=== PATIENT | male | born 1980 ===

== ENCOUNTER 2016-07-28 19:27 | Emergency (ER) | payer SELFPAY ==
[2016-07-28 20:16] VITALS: BP 129/95; PULSE 106; RESP 16; TEMP 98; O2SAT 100
[2016-07-28] MEDS ORDERED: Sodium Chloride 0.9% 1,000 ML IV STA (20:28)
--- NOTE | 2016-07-28 20:32 | ED PDOC ---
HPI: Abdomen Time Seen by Provider: 07/28/16 20:24 Chief Complaint (Nursing): Abdominal Pain Chief Complaint (Provider): Abdominal Pain History Per: Patient History/Exam Limitations: no limitations Onset/Duration Of Symptoms: Hrs (started this morning, approximately 10x hours) Current Symptoms Are (Timing): Still Present Severity: Moderate Location Of Pain/Discomfort: Other (upper abdominal pain) Quality Of Discomfort: Sharp Associated Symptoms: Chills, Nausea, Vomiting. denies: Fever, Diarrhea Additional Complaint(s): 36 year old male with no pertinent medical history presents to the ED with complaints of sharp upper abdominal pain that started this morning approximately 10x hours prior to arrival. He reports having associated symptoms of nausea, vomiting, and chills, but denies having a fever and diarrhea. Past Medical History Reviewed: Historical Data, Nursing Documentation, Vital Signs Vital Signs: Last Vital Signs Temp 98.0 F 07/28/16 20:13 Pulse 106 H 07/28/16 20:13 Resp 16 07/28/16 20:13 BP 129/95 H 07/28/16 20:13 Pulse Ox 100 07/28/16 20:36 - Medical History PMH: Diabetes, HTN - Family History Family History: States: Diabetes - Social History Current smoker - smoking cessation education provided: Yes Alcohol: None - Home Medications Home Medications: Ambulatory Orders Medication Instructions Recorded MetFORMIN [glucOPHAGE] 1,000 mg PO BID 07/12/15 Famotidine [Pepcid] 20 mg PO Q12 #20 tab 07/28/16 Ondansetron [Zofran] 4 mg PO Q8H #10 tab 07/28/16 - Allergies Allergies/Adverse Reactions: Allergies Allergy/AdvReac Type Severity Reaction Status Date / Time No Known Allergies Allergy Verified 07/28/16 20:13 Review of Systems ROS Statement: Except As Marked, All Systems Reviewed And Found Negative Constitutional: Positive for: Chills. Negative for: Fever Gastrointestinal: Positive for: Nausea, Vomiting, Abdominal Pain (sharp upper abdominal pain). Negative for: Diarrhea Physical Exam - Reviewed Nursing Documentation Reviewed: Yes Vital Signs Reviewed: Yes - Physical Exam Appears: Positive for: Well, Non-toxic, No Acute Distress Head Exam: Positive for: ATRAUMATIC, NORMOCEPHALIC Skin: Positive for: Normal Color, Warm, Dry Eye Exam: Positive for: Normal appearance Neck: Positive for: Normal Cardiovascular/Chest: Positive for: Regular Rate, Rhythm Respiratory: Positive for: Normal Breath Sounds. Negative for: Respiratory Distress Gastrointestinal/Abdominal: Positive for: Soft, Tenderness (epigastric and LUQ tenderness. No lower abdominal tenderness.) Extremity: Positive for: Normal ROM Neurologic/Psych: Positive for: Alert, Oriented (3x) - Laboratory Results Result Diagrams: 07/28/16 20:48 07/28/16 20:48 - ECG O2 Sat by Pulse Oximetry: 100 (RA) Pulse Ox Interpretation: Normal - Progress Re-evaluation Time: 22:55 Condition: Improved (Tolerated Po fluid challenge) Medical Decision Making Medical Decision Makin:24 Initial impression: 36 year old male with upper abdominal pain. Initial plan: * CMP * lipase * udip * CBC * bentyl 10mg PO * IV NS 1,000ml IV 100mls/hr * pepcid 20mg IVP * zofran 4mg IVP * reevaluation Scribe Attestation: Documented by Hiwot Mark, acting as a scribe for Zack Diaz MD. Provider Scribe Attestation: All medical record entries made by the Scribe were at my direction and personally dictated by me. I have reviewed the chart and agree that the record accurately reflects my personal performance of the history, physical exam, medical decision making, and the department course for this patient. I have also personally directed, reviewed, and agree with the discharge instructions and disposition. Disposition - Clinical Impression Clinical Impression: Gastritis - Patient ED Disposition Is Patient to be Admitted: No Counseled Patient/Family Regarding: Studies Performed, Diagnosis, Need For Followup, Rx Given - Disposition Referrals: [facility] [Outside] Disposition: Routine/Home Disposition Time: 22:56 Condition: FAIR Prescriptions: Famotidine [Pepcid] 20 mg PO Q12 #20 tab Ondansetron [Zofran] 4 mg PO Q8H #10 tab Instructions: Gastritis (ED)
[2016-07-28 21:06] LABS: BASO % 0.2 % (0.0-2.0); EOS % 0.1 % (0.0-4.0); HEMATOCRIT 39.5 % (35.0-51.0); LYMPH # 1.1 K/uL (1.0-4.3); MEAN CELL VOLUME 84.9 fl (80.0-94.0); MEAN CORPUSCULAR HEMOGLOBIN 28.1 pg (27.0-31.0); MEAN CORPUSCULAR HGB CONC 33.2 g/dL (33.0-37.0); MONO # 0.6 K/uL (0.0-0.8); MONO % 5.1 % (0.0-10.0); NEUT # 10.8 K/uL (1.8-7.0); NEUT % 85.6 % (50.0-75.0); PLATELET COUNT 337 K/uL (130-400); RED CELL DISTRIBUTION WIDTH 13.2 % (11.5-14.5); WHITE BLOOD COUNT 12.6 K/uL (4.8-10.8)
[2016-07-28 21:13] LABS: ALB/GLOB RATIO 1.6 (1.0-2.1); ALKALINE PHOSPHATASE 62 U/L (38-126); ALT/SGPT 20 U/L (21-72); AST/SGOT 34 U/L (17-59); BILIRUBIN,TOTAL 1.6 mg/dl (0.2-1.3); BLOOD UREA NITROGEN 7 mg/dl (9-20); CALCIUM 9.9 mg/dL (8.4-10.2); CARBON DIOXIDE 29 mmol/L (22-30); CHLORIDE 99 mmol/L (98-107); GFR AFRICAN-AMERICAN > 60; GLUCOSE,RANDOM 229 mg/dL (75-110); LIPASE 309 U/L (23-300); SODIUM 140 mmol/l (132-148); TOTAL PROTEIN 7.7 G/DL (6.3-8.2)
[2016-07-28 21:56] LABS: NEUTROPHIL 83 % (42-75); TOTAL CELLS COUNTED 100
== END 2016-07-28 23:08 | disposition home or self-care (01) ==
LOC: H.ER 19:27
DX: K29.70 Gastritis, unspecified, without bleeding (principal); E11.9 Type 2 diabetes mellitus without complications; F17.200 Nicotine dependence, unspecified, uncomplicated; I10 Essential (primary) hypertension; Z79.84 Long term (current) use of oral hypoglycemic drugs
CPT/HCPCS: 80053; 83690; 85025; 96361; 96374; 96375; 99283; J2405; J7040

== ENCOUNTER 2016-07-30 13:03 | Observation (INO) | payer OTHER ==
[2016-07-30] MEDS ORDERED: Iohexol 240 (50 ml) PO ONE (14:02)
[2016-07-30] MEDS ORDERED: Sodium Chloride 0.9% 1,000 ML IV STA (14:02)
--- NOTE | 2016-07-30 14:06 | ED PDOC ---
HPI: Abdomen Time Seen by Provider: 07/30/16 13:55 Chief Complaint (Nursing): Abdominal Pain Chief Complaint (Provider): Epigastric abdominal pain History Per: Patient History/Exam Limitations: no limitations Onset/Duration Of Symptoms: Days (3) Outside of [place] travel?: No Current Symptoms Are (Timing): Still Present Location Of Pain/Discomfort: Epigastric Quality Of Discomfort: "Pain" Associated Symptoms: Nausea, Vomiting. denies: Fever Additional History Per: Patient Additional Complaint(s): The pt is a 36yo male, with PMHx of DM, HTN, presents to the ED for evaluation of epigastric pain with nausea and vomiting for the past three days. Pt was seen in the facility 2 days ago with similar symptoms. Currently denies any fevers or bloody stools and offers no additional medical complaints. Past Medical History Reviewed: Historical Data, Nursing Documentation, Vital Signs Vital Signs: Last Vital Signs Temp 98.7 F 07/30/16 13:32 Pulse 111 H 07/30/16 13:32 Resp 18 07/30/16 13:32 BP 148/96 H 07/30/16 13:32 Pulse Ox 100 07/30/16 14:11 - Medical History PMH: Diabetes, HTN - Family History Family History: States: Diabetes - Home Medications Home Medications: Ambulatory Orders Medication Instructions Recorded MetFORMIN [glucOPHAGE] 1,000 mg PO BID 07/12/15 Famotidine [Pepcid] 20 mg PO Q12 #20 tab 07/28/16 Ondansetron [Zofran] 4 mg PO Q8H #10 tab 07/28/16 - Allergies Allergies/Adverse Reactions: Allergies Allergy/AdvReac Type Severity Reaction Status Date / Time No Known Allergies Allergy Verified 07/28/16 20:13 Review of Systems ROS Statement: Except As Marked, All Systems Reviewed And Found Negative Constitutional: Negative for: Fever Gastrointestinal: Positive for: Nausea, Vomiting, Abdominal Pain (epigastric). Negative for: Hematochezia Physical Exam - Reviewed Nursing Documentation Reviewed: Yes Vital Signs Reviewed: Yes - Physical Exam Appears: Positive for: Well, Non-toxic, No Acute Distress Head Exam: Positive for: ATRAUMATIC, NORMAL INSPECTION, NORMOCEPHALIC Skin: Positive for: Normal Color, Warm, DRY Eye Exam: Positive for: Normal appearance Neck: Positive for: Normal, Supple Cardiovascular/Chest: Positive for: Regular Rate, Rhythm Respiratory: Positive for: Normal Breath Sounds. Negative for: Respiratory Distress Gastrointestinal/Abdominal: Positive for: Normal Exam, Soft, Tenderness ( epigastric tenderness) Back: Positive for: Normal Inspection Extremity: Positive for: Normal ROM. Negative for: Deformity Neurologic/Psych: Positive for: Alert, Oriented. Negative for: Motor/Sensory Deficits - ECG O2 Sat by Pulse Oximetry: 100 (RA) Pulse Ox Interpretation: Normal Medical Decision Making Medical Decision Making: Time: 1402 Impression: Epigastric abdominal pain Plan: * CT AP w/ PO & IV Contrast * CMP * CBC * Lipase * Pepcid 20 mg * Zofran 4 mg * Reglan 10 mg * Reassess Scribe Attestation: Documented by Irma Ward acting as a scribe for Zack Diaz MD. Provider Attestation: All medical record entries made by the Scribe were at my direction and personally dictated by me. I have reviewed the chart and agree that the record accurately reflects my personal performance of the history, physical exam, medical decision making, and the department course for this patient. I have also personally directed, reviewed, and agree with the discharge instructions and disposition. Disposition - Clinical Impression Clinical Impression: Abdominal pain - Patient ED Disposition Is Patient to be Admitted: Transfer of Care - Disposition Disposition: Transfer of Care Disposition Time: 15:20 Condition: FAIR Patient Signed Over To: Tavo Garcia
[2016-07-30] MEDS ORDERED: Iohexol 240 (50 ml) ONE (14:33)
[2016-07-30 15:30] LABS: BASO % 0.3 % (0.0-2.0); HEMATOCRIT 38.8 % (35.0-51.0); LYMPH # 1.3 K/uL (1.0-4.3); LYMPH % 9.7 % (20.0-40.0); MEAN CELL VOLUME 84.3 fl (80.0-94.0); MEAN CORPUSCULAR HEMOGLOBIN 28.3 pg (27.0-31.0); MEAN CORPUSCULAR HGB CONC 33.6 g/dL (33.0-37.0); MEAN PLATELET VOLUME 9.1 fl (7.2-11.7); MONO # 0.8 K/uL (0.0-0.8); MONO % 5.9 % (0.0-10.0); NEUT % 84.1 % (50.0-75.0); RED CELL DISTRIBUTION WIDTH 13.1 % (11.5-14.5); WHITE BLOOD COUNT 13.1 K/uL (4.8-10.8)
[2016-07-30 15:39] LABS: ALB/GLOB RATIO 1.6 (1.0-2.1); ALKALINE PHOSPHATASE 56 U/L (38-126); ALT/SGPT 24 U/L (21-72); AST/SGOT 20 U/L (17-59); BILIRUBIN,TOTAL 2.9 mg/dl (0.2-1.3); BLOOD UREA NITROGEN 9 mg/dl (9-20); CALCIUM 9.3 mg/dL (8.4-10.2); CARBON DIOXIDE 28 mmol/L (22-30); CHLORIDE 96 mmol/L (98-107); GFR AFRICAN-AMERICAN > 60; GLUCOSE,RANDOM 253 mg/dL (75-110); LIPASE 65 U/L (23-300); POTASSIUM 3.5 MMOL/L (3.6-5.0); SODIUM 137 mmol/l (132-148); TOTAL PROTEIN 7.3 G/DL (6.3-8.2)
--- NOTE | 2016-07-30 15:48 | ED PDOC ---
- Laboratory Results Result Diagrams: 07/30/16 15:04 07/30/16 15:04 - ECG O2 Sat by Pulse Oximetry: 100 (RA) Pulse Ox Interpretation: Normal - CT Scan/US ct Other Rad Studies (CT/US): Read By Radiologist Other Rad Interpretation: 4.8mm nodule R - Progress ED Course And Treament: 1931: Pt. with no infectious etiology so not septic. Will admit obs medsurg for futher eval. Stable. Will admit for further evaluation and treatment of gastroparesis. Dr. Sanchez will admit. Medical Decision Making Medical Decision Making: Time: 1500 Pt. signed over to me by Dr. Diaz pending CT AP results and disposition. Scribe Attestation: Documented by Irma Ward acting as a scribe for Tavo Garcia MD. Provider Attestation: All medical record entries made by the Scribe were at my direction and personally dictated by me. I have reviewed the chart and agree that the record accurately reflects my personal performance of the history, physical exam, medical decision making, and the department course for this patient. I have also personally directed, reviewed, and agree with the discharge instructions and disposition. Disposition - Clinical Impression Clinical Impression: Gastroparesis - POA Present On Arrival: Poor Glycemic Control - Disposition Disposition: Hospitalized as Observation Patient Disposition Time: 19:36 Condition: FAIR
[2016-07-30] MEDS ORDERED: Sodium Chloride 0.9% 50 ML IV ONE (17:38)
[2016-07-30] MEDS ORDERED: Iohexol 300 100 ML IJ ONE (17:38)
--- NOTE | 2016-07-30 18:42 | CT ---
EXAM: CT Abdomen and Pelvis With Intravenous Contrast CLINICAL HISTORY: 36 years old, male; Pain; Abdominal pain; Epigastric; Patient HX: C/O abd pain most epigastric n v. Dx dm HTN TECHNIQUE: Axial computed tomography images of the abdomen and pelvis with intravenous contrast. This CT exam was performed using one or more of the following dose reduction techniques: automated exposure control, adjustment of the mA and/or kV according to patient size, and/or use of iterative reconstruction technique. Coronal and sagittal reformatted images were created and reviewed. CONTRAST: 98 mL of OMNIPAQUE administered intravenously. EXAM DATE/TIME: 07/30/2016 2:02 PM COMPARISON: There are no prior studies for comparison. FINDINGS: Lower thorax: The heart size is normal. There is minimal scarring at the lung bases. There is a 4.8 mm nodular opacity in the right costophrenic sulcus. There is a small hiatal hernia ABDOMEN: Liver: There is fatty infiltration of the liver. Gallbladder and bile ducts: unremarkable Pancreas: Pancreas is mildly atrophic. Spleen: unremarkable Adrenals: unremarkable Kidneys and ureters: unremarkable Stomach and bowel: Stomach is partially distended. Rotation is normal. There is no obstruction. Appendix is unremarkable. Terminal ileum is unremarkable.Colon is incompletely distended which limits evaluation. Appendix: See above. PELVIS: Bladder: Bladder is incompletely distended. There is bladder wall thickening. Reproductive: Seminal vesicles and prostate are unremarkable..There are calcifications in the vas deferens. ABDOMEN and PELVIS: Intraperitoneal space: There is no free air or free fluid. Bones/joints: There are no acute osseous abnormalities Soft tissues: unremarkable Vasculature: There are calcified phleboliths. Vascular structures are unremarkable. Lymph nodes: There is no pathologic adenopathy. IMPRESSION: 4.8 mm nodular opacity in the right costophrenic sulcus; fatty liver; bladder wall thickening, underdistention versus inflammation Additional findings as described above. Footer: As per Fleischner Society guidelines for follow-up and management of pulmonary nodules: For patients at low risk (minimal or absent history of smoking and of other known risk factors), recommend follow-up chest CT at 12 months; if unchanged, no further follow-up. For patient at high risk (history of smoking or of other known risk factors), recommend initial follow-up chest CT at 6-12 months, then at 18-24 months if no interval change.
[2016-07-30] MEDS ORDERED: Sodium Chloride 0.9% 1,000 ML IV SCH (19:30)
--- NOTE | 2016-07-30 19:31 | CP.PCM.HP ---
History of Present Illness - History of Present Illness History of Present Illness: Chief Complaint: stomach pain HPI: 36 year old male PMH HTN and DM, poorly controlled returns to the ER for the second time in two days for moderate to severe waxing and waning cramping non radiating generalized abdominal pain associated with nausea and vomiting. Patient has not vomited in the last 5 hours he has been in the emergency room. He received morphine, reglan, fluids. CT abd was negative. Mild WBC, likely gastritis vs. gastroparesis. Will observe overnight for worsening intractable nausea and vomiting. HD stable. No acute distress. ROS: Per HPI, all other systems reviewed negative by me PMH: HTN and DM PSH: denies FH: denies SH: smokes marijuana daily. Denies tobacco, etoh ivdu ALLERGIES: NKDA MEDICATIONS: reviewed and as below Temp Pulse Resp BP Pulse Ox 98.7 F 111 H 18 148/96 H 100 07/30/16 13:32 07/30/16 13:32 07/30/16 13:32 07/30/16 13:32 07/30/16 19:32 GENERAL APPEARANCE: Well developed, well nourished, alert and cooperative, and appears to be in no acute distress. HEENT: normocephalic, atraumatic PERRL, EOMI. Vision is grossly intact. External auditory canals clear, hearing grossly intact. No nasal discharge. Oral cavity and pharynx normal. No inflammation, swelling, exudate, or lesions. NECK: Neck supple, non-tender without lymphadenopathy, masses or thyromegaly. CARDIAC: Normal S1 and S2. No S3, S4 or murmurs. Rhythm is regular. LUNGS: Clear to auscultation and percussion without rales, rhonchi, wheezing or diminished breath sounds. ABDOMEN: Positive bowel sounds. Soft, nondistended,generalized tenderness throughout. No guarding or rebound. No masses. BACK: Examination of the spine reveals no spinal deformity, symmetry of spinal muscles, EXTREMITIES: No significant deformity or joint abnormality. No edema. NEUROLOGICAL: Strength and sensation symmetric and intact throughout. Reflexes 2 + throughout. SKIN: Skin normal color, texture and turgor with no lesions or eruptions. PSYCHIATRIC: The patient was oriented to person, place, and time. Normal affect. LABS: 07/30/16 15:04 05/27/17 15:[address] abd negative for acute pathology ACTIVE MEDICATIONS Allergies No Known Allergies Allergy (Verified 07/28/16 20:13) Height & Weight Height 5 ft 6 in Weight 160 lb Start Date/Time Active Medications 07/30/16 14:02 Sodium Chloride 0.9% 1,000 ml IV 100 mls/hr 07/30/16 19:27 Ketorolac [Toradol] 30 mg IVP Q6 PRN Metoclopramide [Reglan] 10 mg IVP Q6 PRN 07/30/16 19:30 MetFORMIN [glucOPHAGE] 1,000 mg PO BID Sodium Chloride 0.9% 1,000 ml IV 200 mls/hr 07/30/16 20:00 Potassium CL 10mEq/100ml [Potassium Chloride 10 mEq/100 ml] 100 ml IVPB Q1 07/30/16 22:00 Insulin Human Regular [HumuLIN R] See Protocol [facility] 07/31/16 09:00 Famotidine [Pepcid] 20 mg PO BID Lisinopril [Zestril] 10 mg PO DAILY ASSESSMENT AND PLAN 36 year old male PMH HTN and DM, poorly controlled returns to the ER for the second time in two days for moderate to severe waxing and waning cramping non radiating generalized abdominal pain associated with nausea and vomiting. Patient has not vomited in the last 5 hours he has been in the emergency room. He received morphine, reglan, fluids. CT abd was negative. Mild WBC, likely gastritis vs. gastroparesis. Will observe overnight for worsening intractable nausea and vomiting. HD stable. No acute distress. Abdominal Pain with intractable vomiting and nausea, possibly gastroparesis CT abd neg Continue reglan Continue fluids Toradol for pain control Monitor for worsening condition Hypokalemia Replete K Check Mg and BMP in AM HTN Start Lisinopril 10 mg po daily DM Accuchecks Cont Metformin ISS Low dose DVT prophylaxis LOVENOX SC daily. Present on Admission - Present on Admission Any Indicators Present on Admission: No Past Patient History - Past Social History Smoking Status: Light Smoker < 10 Cigarettes Daily - CARDIAC Hx Hypertension: Yes - ENDOCRINE/METABOLIC Hx Diabetes Mellitus Type 2: Yes - PSYCHIATRIC Hx Substance Use: Yes - SURGICAL HISTORY Hx Surgeries: No - ANESTHESIA Hx Anesthesia: No Meds Allergies/Adverse Reactions: Allergies Allergy/AdvReac Type Severity Reaction Status Date / Time No Known Allergies Allergy Verified 07/28/16 20:13 Results - Vital Signs Recent Vital Signs: Last Vital Signs Temp 98.7 F 07/30/16 13:32 Pulse 111 H 07/30/16 13:32 Resp 18 07/30/16 13:32 BP 148/96 H 07/30/16 13:32 Pulse Ox 100 07/30/16 19:27 - Labs Result Diagrams: 07/30/16 15:04 07/30/16 15:04 Labs: Laboratory Results - last 24 hr 07/30/16 07/30/16 15:04 15:04 WBC 13.1 H RBC 4.60 Hgb 13.0 Hct 38.8 MCV 84.3 MCH 28.3 MCHC 33.6 RDW 13.1 Plt Count 318 MPV 9.1 Neut % (Auto) 84.1 H Lymph % (Auto) 9.7 L [place] % (Auto) 5.9 Eos % (Auto) 0.0 Baso % (Auto) 0.3 Neut # 11.0 H Lymph # 1.3 Robertson # 0.8 Eos # 0.0 Baso # 0.0 Sodium 137 Potassium 3.5 L Chloride 96 L Carbon Dioxide 28 Anion Gap 17 BUN 9 Creatinine 0.7 L Est GFR ( Amer) > 60 Est GFR (Non-Af Amer) > 60 Random Glucose 253 H Calcium 9.3 Total Bilirubin 2.9 H AST 20 ALT 24 Alkaline Phosphatase 56 Total Protein 7.3 Albumin 4.5 Globulin 2.9 Albumin/Globulin Ratio 1.6 Lipase 65
[2016-07-30] MEDS: Potassium CL 10mEq/100ml 100 ML IVPB SCH ×2 (20:16→23:27)
[2016-07-30] MEDS: Insulin Regular 100 units/ml SC SCH (22:14)
[2016-07-31] MEDS: Potassium CL 10mEq/100ml 100 ML IVPB SCH ×2 (01:19→02:48)
[2016-07-31] MEDS: Insulin Regular 100 units/ml SC SCH ×3 (08:05→17:42)
[2016-07-31 08:08] LABS: MEAN CORPUSCULAR HEMOGLOBIN 28.8 pg (27.0-31.0); MEAN CORPUSCULAR HGB CONC 34.2 g/dL (33.0-37.0); RED CELL DISTRIBUTION WIDTH 13.2 % (11.5-14.5); WHITE BLOOD COUNT 11.6 K/uL (4.8-10.8)
[2016-07-31 08:21] LABS: BLOOD UREA NITROGEN 6 mg/dl (9-20); CARBON DIOXIDE 28 mmol/L (22-30); CHLORIDE 100 mmol/L (98-107); GFR AFRICAN-AMERICAN > 60; GLUCOSE,RANDOM 143 mg/dL (75-110); MAGNESIUM 2.1 MG/DL (1.6-2.3); POTASSIUM 3.7 MMOL/L (3.6-5.0); SODIUM 138 mmol/l (132-148)
--- NOTE | 2016-07-31 11:00 | CP.PCM.DIS ---
Provider - Provider Date of Admission: 07/30/16 19:23 Attending physician: Wen Sanchez DO Time Spent in preparation of Discharge (in minutes): 30 Diagnosis - Discharge Diagnosis (1) Cannabinoid hyperemesis syndrome Status: Acute Hospital Course - Lab Results Lab Results: Most Recent Lab Values WBC 11.6 K/uL (4.8-10.8) H 07/31/16 05:30 RBC 4.53 Mil/uL (4.40-5.90) 07/31/16 05:30 Hgb 13.0 g/dL (12.0-18.0) 07/31/16 05:30 Hct 38.0 % (35.0-51.0) 07/31/16 05:30 MCV 84.0 fl (80.0-94.0) 07/31/16 05:30 MCH 28.8 pg (27.0-31.0) 07/31/16 05:30 MCHC 34.2 g/dL (33.0-37.0) 07/31/16 05:30 RDW 13.2 % (11.5-14.5) 07/31/16 05:30 Plt Count 320 K/uL (130-400) 07/31/16 05:30 MPV 9.1 fl (7.2-11.7) 07/30/16 15:04 Neut % (Auto) 84.1 % (50.0-75.0) H 07/30/16 15:04 Lymph % (Auto) 9.7 % (20.0-40.0) L 07/30/16 15:04 [place] % (Auto) 5.9 % (0.0-10.0) 07/30/16 15:04 Eos % (Auto) 0.0 % (0.0-4.0) 07/30/16 15:04 Baso % (Auto) 0.3 % (0.0-2.0) 07/30/16 15:04 Neut # 11.0 K/uL (1.8-7.0) H 07/30/16 15:04 Lymph # 1.3 K/uL (1.0-4.3) 07/30/16 15:04 [place] # 0.8 K/uL (0.0-0.8) 07/30/16 15:04 Eos # 0.0 K/uL (0.0-0.7) 07/30/16 15:04 Baso # 0.0 K/uL (0.0-0.2) 07/30/16 15:04 Sodium 138 mmol/l (132-148) 07/31/16 05:30 Potassium 3.7 MMOL/L (3.6-5.0) 07/31/16 05:30 Chloride 100 mmol/L (98-107) 07/31/16 05:30 Carbon Dioxide 28 mmol/L (22-30) 07/31/16 05:30 Anion Gap 14 (10-20) 07/31/16 05:30 BUN 6 mg/dl (9-20) L 07/31/16 05:30 Creatinine 0.7 mg/dL (0.8-1.5) L 07/31/16 05:30 Est GFR ( Amer) > 60 07/31/16 05:30 Est GFR (Non-Af Amer) > 60 07/31/16 05:30 POC Glucose (mg/dL) 172 mg/dL (65-110) H 07/31/16 10:44 Random Glucose 143 mg/dL (75-110) H 07/31/16 05:30 Calcium 9.0 mg/dL (8.4-10.2) 07/31/16 05:30 Magnesium 2.1 MG/DL (1.6-2.3) 07/31/16 05:30 Total Bilirubin 2.9 mg/dl (0.2-1.3) H 07/30/16 15:04 AST 20 U/L (17-59) 07/30/16 15:04 ALT 24 U/L (21-72) 07/30/16 15:04 Alkaline Phosphatase 56 U/L (38-126) 07/30/16 15:04 Total Protein 7.3 G/DL (6.3-8.2) 07/30/16 15:04 Albumin 4.5 g/dL (3.5-5.0) 07/30/16 15:04 Globulin 2.9 gm/dL (2.2-3.9) 07/30/16 15:04 Albumin/Globulin Ratio 1.6 (1.0-2.1) 07/30/16 15:04 Lipase 65 U/L (23-300) 07/30/16 15:04 - Hospital Course Hospital Course: 36 year old male PMH HTN and DM, poorly controlled returns to the ER for the second time in two days for moderate to severe waxing and waning cramping non radiating generalized abdominal pain associated with nausea and vomiting. Patient has not vomited in the last 5 hours he has been in the emergency room. He received morphine, reglan, fluids. CT abd was negative. Mild WBC, likely ANNABINOID HYPEREMESIS SYNDROME. Will observe overnight for worsening intractable nausea and vomiting. Patient improved this morning. Has residual nausea but no longer vomiting. Electrolytes resolved. May be discharged home in stable condition. Instructions to follow up with [facility]. Abdominal Pain with intractable vomiting and nausea, likely CANNABINOID HYPEREMESIS SYNDROME Patient admits to using marijuana daily CT abd neg Continue reglan Continue fluids Toradol for pain control Monitor for worsening condition Hypokalemia Electrolyte abnormalities resolved. HTN Start Lisinopril 10 mg po daily DM Accuchecks Cont Metformin ISS Low dose DVT prophylaxis LOVENOX SC daily. Discharge Exam - Head Exam Head Exam: ATRAUMATIC, NORMAL INSPECTION, NORMOCEPHALIC Discharge Plan - Discharge Medications Prescriptions: Lisinopril [Zestril] 10 mg PO DAILY #30 tab MetFORMIN [glucoPHAGE] 1,000 mg PO BID #60 Metoclopramide [Reglan] 10 mg PO Q6 #120 tab - Follow Up Plan Condition: FAIR Disposition: HOME/ ROUTINE
[2016-07-31 15:46] VITALS: PULSE 93; RESP 19; TEMP 98.6; O2SAT 100
[2016-07-31 17:29] VITALS: BP 144/83
== END 2016-07-31 18:04 | disposition home or self-care (01) ==
LOC: H.ER 13:03 → H.ERHOLD 19:23 → H.MEDSURG1 22:00
PROVIDERS: ADMIT Student in an Organized Health Care Education/Training Program; ATTEND Student in an Organized Health Care Education/Training Program
DX: E11.43 Type 2 diabetes mellitus with diabetic autonomic (poly)neuropathy (principal); K31.84 Gastroparesis; E87.6 Hypokalemia; F12.90 Cannabis use, unspecified, uncomplicated; T40.7X5A Adverse effect of cannabis (derivatives), initial encounter; I10 Essential (primary) hypertension; F17.210 Nicotine dependence, cigarettes, uncomplicated

== ENCOUNTER 2016-11-25 12:29 | Emergency (ER) | payer OTHER ==
[2016-11-25 12:42] VITALS: TEMP 97; O2SAT 98
[2016-11-25] MEDS ORDERED: Sodium Chloride 0.9% 1,000 ML IV STA (12:58)
[2016-11-25 14:03] LABS: BASO # 0.1 K/uL (0.0-0.2); BASO % 0.5 % (0.0-2.0); EOS % 0.2 % (0.0-4.0); HEMATOCRIT 40.1 % (35.0-51.0); LYMPH # 1.3 K/uL (1.0-4.3); LYMPH % 9.5 % (20.0-40.0); MEAN CELL VOLUME 84.9 fl (80.0-94.0); MEAN CORPUSCULAR HEMOGLOBIN 27.6 pg (27.0-31.0); MEAN CORPUSCULAR HGB CONC 32.5 g/dL (33.0-37.0); MEAN PLATELET VOLUME 8.7 fl (7.2-11.7); MONO # 0.8 K/uL (0.0-0.8); MONO % 5.7 % (0.0-10.0); NEUT # 11.4 K/uL (1.8-7.0); NEUT % 84.1 % (50.0-75.0); PLATELET COUNT 330 K/uL (130-400); RED CELL DISTRIBUTION WIDTH 13.1 % (11.5-14.5); WHITE BLOOD COUNT 13.5 K/uL (4.8-10.8)
[2016-11-25] MEDS ORDERED: Iohexol 240 (50 ml) PO ONE (14:09)
[2016-11-25 14:20] LABS: ALB/GLOB RATIO 1.6 (1.0-2.1); ALKALINE PHOSPHATASE 63 U/L (38-126); ALT/SGPT 26 U/L (21-72); AST/SGOT 29 U/L (17-59); BILIRUBIN,TOTAL 2.3 mg/dl (0.2-1.3); BLOOD UREA NITROGEN 7 mg/dl (9-20); CALCIUM 9.7 mg/dL (8.4-10.2); CARBON DIOXIDE 30 mmol/L (22-30); CHLORIDE 96 mmol/L (98-107); GFR AFRICAN-AMERICAN > 60; GLUCOSE,RANDOM 281 mg/dL (75-110); POTASSIUM 3.9 MMOL/L (3.6-5.0); SODIUM 138 mmol/l (132-148); TOTAL PROTEIN 7.4 G/DL (6.3-8.2)
[2016-11-25] MEDS ORDERED: Iohexol 240 (50 ml) ONE (14:39)
[2016-11-25 14:42] LABS: NEUTROPHIL 86 % (42-75); TOTAL CELLS COUNTED 100
[2016-11-25] MEDS ORDERED: Sodium Chloride 0.9% 50 ML IV ONE (14:53)
[2016-11-25] MEDS ORDERED: Iohexol 300 100 ML IJ ONE (14:53)
--- NOTE | 2016-11-25 15:24 | ED PDOC ---
HPI: Abdomen Time Seen by Provider: 11/25/16 12:56 Chief Complaint (Nursing): GI Problem Chief Complaint (Provider): abd pain History Per: Patient History/Exam Limitations: no limitations Onset/Duration Of Symptoms: Days (5), Intermittent Episodes, Persistent Outside of [place] travel?: No Current Symptoms Are (Timing): Still Present Location Of Pain/Discomfort: Diffuse Quality Of Discomfort: Cramping, Pressure Associated Symptoms: Chills, Nausea, Vomiting, Loss Of Appetite. denies: Fever , Diarrhea, Back Pain, Chest Pain, Urinary Symptoms Exacerbating Factors: Food Alleviating Factors: Rest Last Bowel Movement: Today Additional Complaint(s): 36yo M in ED for eval of abdominal pain x 5d with hx of similar in the past and dx with gastritis. states that he had intermittent cramping with associated nausea and vomiting and no diarrhea. hx of DM takes metformin. Pt denies any recent foods, foreign travel as causative factor. admits to chills, night sweats. Past Medical History Reviewed: Historical Data, Nursing Documentation, Vital Signs Vital Signs: Last Vital Signs Temp 97 F L 11/25/16 12:39 Pulse 98 H 11/25/16 15:24 Resp 16 11/25/16 15:24 BP 172/98 H 11/25/16 15:24 Pulse Ox 98 11/25/16 18:35 - Medical History PMH: Diabetes, HTN Denies: Chronic Kidney Disease - Family History Family History: States: Diabetes - Home Medications Home Medications: Ambulatory Orders Medication Instructions Recorded Lisinopril [Zestril] 10 mg PO DAILY #30 tab 07/31/16 MetFORMIN [glucoPHAGE] 1,000 mg PO BID #60 07/31/16 Metoclopramide [Reglan] 10 mg PO Q6 #120 tab 07/31/16 Dicyclomine [Bentyl] 20 mg PO TID #30 tab 11/25/16 - Allergies Allergies/Adverse Reactions: Allergies Allergy/AdvReac Type Severity Reaction Status Date / Time No Known Allergies Allergy Verified 07/30/16 19:37 Review of Systems ROS Statement: Except As Marked, All Systems Reviewed And Found Negative Gastrointestinal: Positive for: Nausea, Vomiting, Abdominal Pain Physical Exam - Reviewed Nursing Documentation Reviewed: Yes Vital Signs Reviewed: Yes - Physical Exam Appears: Positive for: Non-toxic, No Acute Distress, Uncomfortable Head Exam: Positive for: ATRAUMATIC, NORMAL INSPECTION, NORMOCEPHALIC Skin: Positive for: Normal Color, Warm, DRY Eye Exam: Positive for: EOMI, Normal appearance, PERRL ENT: Positive for: Normal ENT Inspection Neck: Positive for: Normal, Painless ROM Cardiovascular/Chest: Positive for: Regular Rate, Rhythm Respiratory: Positive for: CNT, Normal Breath Sounds Gastrointestinal/Abdominal: Positive for: Bowel Sounds, Soft. Negative for: Tenderness (on PE nontender. however pt is c/o of cramping pain diffuse. ), Distended, Guarding Back: Positive for: Normal Inspection. Negative for: L CVA Tenderness, R CVA Tenderness Extremity: Positive for: Normal ROM Neurologic/Psych: Positive for: Alert, Oriented - Laboratory Results Result Diagrams: 11/25/16 13:50 11/25/16 13:50 - ECG O2 Sat by Pulse Oximetry: 98 - Progress ED Course And Treament: pt given Bentyl, zofran and due to persistent pain and nausea given morphine and zofran. PT will get CT scan with PO contrast and IV contrast. Medical Decision Making Medical Decision Making: CT of abd-shows no significant abnormality. PT strongly advised to have GI f.u for endoscopy. Pt will be d.c with Bentyl for cramping. pt d.c with lab results and with CT scan results. elevated WBC and blood sugar could be related to pain level. Pt fs improved Disposition - Clinical Impression Clinical Impression: Gastroparesis - Patient ED Disposition Is Patient to be Admitted: No Counseled Patient/Family Regarding: Studies Performed, Diagnosis, Need For Followup, Rx Given, Smoking Cessation - Disposition Referrals: [facility] [Outside] [facility] [Outside] Ronn Rios MD [Staff Provider] - Disposition: Routine/Home Disposition Time: 19:00 Condition: IMPROVED Prescriptions: Dicyclomine [Bentyl] 20 mg PO TID #30 tab Instructions: Gastritis (ED) Forms: [facility] (Mongolian)
[2016-11-25 15:25] VITALS: BP 172/98; PULSE 98; RESP 16
[2016-11-25 17:35] LABS: RBC URINE 1 /hpf (0-3); URINE BACTERIA RARE (<OCC); URINE BILIRUBIN NEGATIVE (NEGATIVE); URINE BLOOD NEGATIVE (NEGATIVE); URINE COLOR YELLOW (YELLOW); URINE GLUCOSE (UA) >=500 mg/dL (Normal); URINE KETONE 80 mg/dL (NEGATIVE); URINE LEUKOCYTE ESTERASE NEG Leu/uL (Negative); URINE PROTEIN NEGATIVE (NEGATIVE); URINE UROBILINOGEN 0.2-1.0 mg/dL (0.2-1.0); WBC URINE 2 /hpf (0-5)
--- NOTE | 2016-11-25 18:31 | CT ---
PROCEDURE: CT Abdomen and Pelvis with oral and IV contrast. HISTORY: diffuse abd pain with elevated WBC COMPARISON: CT abdomen and pelvis with IV contrast performed 07/30/16 TECHNIQUE: Contiguous axial images of the abdomen and pelvis. Oral and IV contrast was administered. Coronal and Sagittal reformats generated and reviewed. Contrast dose: 95 mL Omnipaque 300 Radiation dose: Total exam DLP = 552.06 mGy-cm. This CT exam was performed using one or more of the following dose reduction techniques: Automated exposure control, adjustment of the mA and/or kV according to patient size, and/or use of iterative reconstruction technique. FINDINGS: LOWER THORAX: No visible consolidation, pleural effusion, or pneumothorax. LIVER: Hypoattenuation of the liver compatible with hepatic steatosis. More focal hypoattenuation near the falciform ligament may reflect more focal fat infiltration. GALLBLADDER AND BILE DUCTS: Unremarkable. PANCREAS: Mild atrophy. SPLEEN: Unremarkable. ADRENALS: Unremarkable. KIDNEYS AND URETERS: The kidneys enhance symmetrically. No hydronephrosis or obstructing renal calculus. BLADDER: The urinary bladder appears unremarkable. REPRODUCTIVE: The prostate gland measures approximately 3.9 x 4.6 cm. APPENDIX: The appendix appears within normal limits of caliber. No secondary signs of acute appendicitis. BOWEL: The stomach is nondistended. The bowel loops appear within normal limits of caliber without evidence of intestinal obstruction. PERITONEUM: No significant free fluid. No definite free air. LYMPH NODES: No bulky lymphadenopathy identified. VASCULATURE: No aortic aneurysm. BONES: No acute osseous abnormality is detected. OTHER FINDINGS: None. IMPRESSION: Hypoattenuation of the liver compatible with hepatic steatosis. More focal hypoattenuation near the falciform ligament may reflect more focal fat infiltration.
== END 2016-11-25 19:25 | disposition home or self-care (01) ==
LOC: H.ER 12:29
DX: K31.84 Gastroparesis (principal); E11.9 Type 2 diabetes mellitus without complications; I10 Essential (primary) hypertension; D72.829 Elevated white blood cell count, unspecified
CPT/HCPCS: 74177; 80053; 81003; 82948; 85025; 96374; 96375; 96376; 99284; J2270; J2405; J7040; Q9966; Q9967

== ENCOUNTER 2016-11-26 18:12 | Emergency (ER) | payer OTHER ==
[2016-11-26] MEDS ORDERED: Sodium Chloride 0.9% 1,000 ML IV STA (18:28)
--- NOTE | 2016-11-26 18:45 | ED PDOC ---
HPI: Abdomen Time Seen by Provider: 11/26/16 18:21 Chief Complaint (Nursing): Abdominal Pain Chief Complaint (Provider): Diffuse abdominal pain, vomiting History Per: Patient History/Exam Limitations: no limitations Onset/Duration Of Symptoms: Days Outside of [place] travel?: No Current Symptoms Are (Timing): Still Present Severity: Severe Pain Scale Rating Of: 10 Location Of Pain/Discomfort: Diffuse Quality Of Discomfort: Sharp Associated Symptoms: Nausea, Vomiting, Loss Of Appetite. denies: Fever, Chills Exacerbating Factors: None Alleviating Factors: None Last Bowel Movement: Today Additional Complaint(s): Pt was in ER for the same yesterday with normal CT scan. Pt has also been admitted in the past for hyperemesis due to cannaboid use. Endorsed pending CMP, urine and drug screen. Past Medical History Reviewed: Historical Data, Nursing Documentation, Vital Signs Vital Signs: Last Vital Signs Temp 99.1 F 11/26/16 18:19 Pulse 94 H 11/26/16 18:19 Resp 16 11/26/16 18:19 BP 170/100 H 11/26/16 18:19 Pulse Ox 100 11/26/16 18:45 - Medical History PMH: Diabetes, HTN Denies: Chronic Kidney Disease - Surgical History Surgical History: No Surg Hx - Family History Family History: States: Diabetes - Living Arrangements Living Arrangements: With Family - Social History Current smoker - smoking cessation education provided: No - Home Medications Home Medications: Ambulatory Orders Medication Instructions Recorded Lisinopril [Zestril] 10 mg PO DAILY #30 tab 07/31/16 MetFORMIN [glucoPHAGE] 1,000 mg PO BID #60 07/31/16 Metoclopramide [Reglan] 10 mg PO Q6 #120 tab 07/31/16 Dicyclomine [Bentyl] 20 mg PO TID #30 tab 11/25/16 - Allergies Allergies/Adverse Reactions: Allergies Allergy/AdvReac Type Severity Reaction Status Date / Time No Known Allergies Allergy Verified 07/30/16 19:37 Review of Systems ROS Statement: Except As Marked, All Systems Reviewed And Found Negative Constitutional: Negative for: Fever, Chills Gastrointestinal: Positive for: Nausea, Vomiting, Abdominal Pain Physical Exam - Reviewed Nursing Documentation Reviewed: Yes Vital Signs Reviewed: Yes - Physical Exam Appears: Positive for: Well, Non-toxic, No Acute Distress Head Exam: Positive for: ATRAUMATIC, NORMAL INSPECTION, NORMOCEPHALIC Skin: Positive for: Normal Color, Warm, DRY Eye Exam: Positive for: Normal appearance ENT: Positive for: Normal ENT Inspection Neck: Positive for: Normal, Painless ROM Cardiovascular/Chest: Positive for: Regular Rate, Rhythm Respiratory: Positive for: Normal Breath Sounds. Negative for: Accessory Muscle Use, Respiratory Distress Gastrointestinal/Abdominal: Positive for: Normal Exam, Bowel Sounds, Soft. Negative for: Tenderness, Guarding, Rebound Back: Positive for: Normal Inspection Extremity: Positive for: Normal ROM Neurologic/Psych: Positive for: Alert, Oriented - Laboratory Results Result Diagrams: 11/26/16 18:59 - ECG O2 Sat by Pulse Oximetry: 100 Disposition - Clinical Impression Clinical Impression: Abdominal pain - Patient ED Disposition Is Patient to be Admitted: Transfer of Care - Disposition Disposition: Transfer of Care Disposition Time: 19:47 Condition: STABLE Forms: [facility] (Chadian)
[2016-11-26 19:05] LABS: BASO # 0.1 K/uL (0.0-0.2); BASO % 0.4 % (0.0-2.0); LYMPH # 1.2 K/uL (1.0-4.3); LYMPH % 8.9 % (20.0-40.0); MEAN CELL VOLUME 84.5 fl (80.0-94.0); MEAN CORPUSCULAR HEMOGLOBIN 28.6 pg (27.0-31.0); MEAN CORPUSCULAR HGB CONC 33.9 g/dL (33.0-37.0); MEAN PLATELET VOLUME 9.2 fl (7.2-11.7); MONO # 0.7 K/uL (0.0-0.8); MONO % 5.6 % (0.0-10.0); NEUT # 11.2 K/uL (1.8-7.0); NEUT % 85.1 % (50.0-75.0); NRBC % 0.1 % (0.0-0.0); RED CELL DISTRIBUTION WIDTH 12.9 % (11.5-14.5); WHITE BLOOD COUNT 13.1 K/uL (4.8-10.8)
[2016-11-26 19:57] LABS: ALB/GLOB RATIO 1.6 (1.0-2.1); ALKALINE PHOSPHATASE 61 U/L (38-126); ALT/SGPT 22 U/L (21-72); AST/SGOT 22 U/L (17-59); BILIRUBIN,TOTAL 2.6 mg/dl (0.2-1.3); BLOOD UREA NITROGEN 6 mg/dl (9-20); CARBON DIOXIDE 28 mmol/L (22-30); CHLORIDE 97 mmol/L (98-107); GFR AFRICAN-AMERICAN > 60; GLUCOSE,RANDOM 230 mg/dL (75-110); POTASSIUM 3.4 MMOL/L (3.6-5.0); SODIUM 139 mmol/l (132-148); TOTAL PROTEIN 7.2 G/DL (6.3-8.2)
[2016-11-26 20:10] VITALS: BP 165/99; PULSE 86; RESP 18; TEMP 98.8; O2SAT 95
[2016-11-26 20:32] LABS: RBC URINE 5 /hpf (0-3); URINE BACTERIA RARE (<OCC); URINE BILIRUBIN NEGATIVE (NEGATIVE); URINE BLOOD NEGATIVE (NEGATIVE); URINE COLOR YELLOW (YELLOW); URINE GLUCOSE (UA) >=500 mg/dL (Normal); URINE KETONE 80 mg/dL (NEGATIVE); URINE LEUKOCYTE ESTERASE NEG Leu/uL (Negative); URINE PROTEIN 30 mg/dL (NEGATIVE); URINE UROBILINOGEN 0.2-1.0 mg/dL (0.2-1.0); WBC URINE < 1 /hpf (0-5)
--- NOTE | 2016-11-26 22:53 | ED PDOC ---
- Laboratory Results Result Diagrams: 11/26/16 18:59 11/26/16 19:35 - ECG O2 Sat by Pulse Oximetry: 95 - Progress ED Course And Treament: Patient improved in ED Bloodwork/drug screen reviewed. Disposition - Clinical Impression Clinical Impression: Abdominal pain - POA Present On Arrival: None - Disposition Referrals: Rian BARRERA,MD Reggie [Medical Doctor] - Disposition: Routine/Home Disposition Time: 22:52 Condition: STABLE Prescriptions: Famotidine [Pepcid] 20 mg PO BID #10 tab Ondansetron ODT [Zofran ODT] 4 mg PO Q8 PRN #6 odt PRN Reason: Nausea/Vomiting Instructions: Diabetic Gastroparesis (GEN) Forms: [facility] (Romansh)
== END 2016-11-26 23:24 | disposition home or self-care (01) ==
LOC: H.ER 18:12
DX: R10.9 Unspecified abdominal pain (principal); I10 Essential (primary) hypertension; E11.9 Type 2 diabetes mellitus without complications; Z87.891 Personal history of nicotine dependence
CPT/HCPCS: 80053; 80324; 80345; 80346; 80349; 80353; 80358; 80361; 81003; 83992; 85025; 87086; 96360; 99283; J2270; J2405; J7040

== ENCOUNTER 2016-11-28 20:20 | Emergency (ER) | payer OTHER ==
[2016-11-28] MEDS ORDERED: Sodium Chloride 0.9% 1,000 ML IV STA (22:54)
--- NOTE | 2016-11-28 22:57 | ED PDOC ---
HPI: Abdomen Time Seen by Provider: 11/28/16 22:19 Chief Complaint (Nursing): Abdominal Pain Chief Complaint (Provider): abdominal pain History Per: Patient History/Exam Limitations: no limitations Onset/Duration Of Symptoms: Days (1 week), Waxing/Waning Current Symptoms Are (Timing): Still Present Additional History Per: Patient Additional Complaint(s): 36 y/o male presents with abdominal pain x 1 week. Patient seen twice last week for same, was given prescriptions to go home with. Patient states pain improved as of yesterday then returned today. Pain worse after eating, with associated vomiting x 1. Denies fever, cough, chest pain, shortness of breath, palpitations, changes in bowel movements, urinary symptoms. Past Medical History Reviewed: Historical Data, Nursing Documentation, Vital Signs Vital Signs: Last Vital Signs Temp 99.4 F 11/29/16 04:08 Pulse 82 11/29/16 04:08 Resp 16 11/29/16 04:08 BP 162/94 H 11/29/16 04:08 Pulse Ox 100 11/29/16 04:25 - Medical History PMH: Diabetes, HTN Denies: Chronic Kidney Disease - Family History Family History: States: Diabetes - Home Medications Home Medications: Ambulatory Orders Medication Instructions Recorded Lisinopril [Zestril] 10 mg PO DAILY #30 tab 07/31/16 MetFORMIN [glucoPHAGE] 1,000 mg PO BID #60 07/31/16 Metoclopramide [Reglan] 10 mg PO Q6 #120 tab 07/31/16 Dicyclomine [Bentyl] 20 mg PO TID #30 tab 11/25/16 Famotidine [Pepcid] 20 mg PO BID #10 tab 11/26/16 Ondansetron ODT [Zofran ODT] 4 mg PO Q8 PRN #6 odt 11/26/16 Famotidine [Pepcid] 20 mg PO BID #20 tab 11/29/16 Ondansetron ODT [Zofran ODT] 4 mg PO Q8 PRN #10 odt 11/29/16 - Allergies Allergies/Adverse Reactions: Allergies Allergy/AdvReac Type Severity Reaction Status Date / Time No Known Allergies Allergy Verified 07/30/16 19:37 Review of Systems ROS Statement: Except As Marked, All Systems Reviewed And Found Negative Gastrointestinal: Positive for: Nausea, Vomiting, Abdominal Pain Physical Exam - Reviewed Nursing Documentation Reviewed: Yes Vital Signs Reviewed: Yes - Physical Exam Appears: Positive for: Well, Non-toxic, No Acute Distress Head Exam: Positive for: ATRAUMATIC, NORMAL INSPECTION, NORMOCEPHALIC Skin: Positive for: Normal Color Eye Exam: Positive for: Normal appearance ENT: Positive for: Normal ENT Inspection Cardiovascular/Chest: Positive for: Regular Rate, Rhythm Respiratory: Positive for: Normal Breath Sounds Gastrointestinal/Abdominal: Positive for: Normal Exam Back: Positive for: Normal Inspection Extremity: Positive for: Normal ROM Neurologic/Psych: Positive for: Alert, Oriented - Laboratory Results Result Diagrams: 11/28/16 23:09 11/28/16 23:20 - ECG O2 Sat by Pulse Oximetry: 100 - Progress ED Course And Treament: labs, IV fluids, IV zofran, IV pepcid EXAM: US Abdomen Limited, Right Upper Quadrant CLINICAL HISTORY: 36 years old, male; Pain; Abdominal pain; Epigastric TECHNIQUE: Real-time ultrasound of the right upper quadrant with image documentation. COMPARISON: No relevant prior studies available. FINDINGS: Liver: Fatty infiltration. No mass. No intrahepatic ductal dilatation. Gallbladder: No gallstones. Sludge. No wall thickening. No pericholecystic fluid. No sonographic Allen's sign. Common bile duct: No dilatation. No stones. Pancreas: Unremarkable as visualized. Right kidney: Normal echogenicity. No hydronephrosis. IMPRESSION: 1. Gallbladder sludge. 2. Incidental/non-acute findings are described above. On re-eval, patient states he is feeling better. Tolerating PO. Case discussed with ED attending Dr. Escobedo; agrees with plan to discharge and follow up outpatient therapy. Rx pepcid, zofran provided. Diet modification. Return to ED for worsening/concerning symptoms. Disposition - Clinical Impression Clinical Impression: Abdominal pain - Patient ED Disposition Is Patient to be Admitted: No Counseled Patient/Family Regarding: Studies Performed, Diagnosis, Need For Followup - Disposition Referrals: Ronn Rios MD [Staff Provider] - Disposition: Routine/Home Disposition Time: 04:19 Condition: IMPROVED Prescriptions: Famotidine [Pepcid] 20 mg PO BID #20 tab Ondansetron ODT [Zofran ODT] 4 mg PO Q8 PRN #10 odt PRN Reason: Nausea/Vomiting Instructions: Abdominal Pain (ED)
[2016-11-28 23:27] LABS: BASO % 0.3 % (0.0-2.0); EOS % 0.2 % (0.0-4.0); HEMATOCRIT 42.9 % (35.0-51.0); LYMPH # 2.2 K/uL (1.0-4.3); MEAN CELL VOLUME 84.5 fl (80.0-94.0); MEAN CORPUSCULAR HEMOGLOBIN 28.8 pg (27.0-31.0); MEAN PLATELET VOLUME 9.1 fl (7.2-11.7); MONO # 1.3 K/uL (0.0-0.8); MONO % 9.9 % (0.0-10.0); NEUT # 9.3 K/uL (1.8-7.0); NEUT % 72.6 % (50.0-75.0); NRBC % 0.2 % (0.0-0.0); RED CELL DISTRIBUTION WIDTH 12.9 % (11.5-14.5); WHITE BLOOD COUNT 12.9 K/uL (4.8-10.8)
[2016-11-28 23:29] LABS: RBC URINE 3 /hpf (0-3); URINE BACTERIA RARE (<OCC); URINE BILIRUBIN NEGATIVE (NEGATIVE); URINE BLOOD NEGATIVE (NEGATIVE); URINE COLOR YELLOW (YELLOW); URINE GLUCOSE (UA) 50 mg/dL (Normal); URINE KETONE 80 mg/dL (NEGATIVE); URINE LEUKOCYTE ESTERASE NEG Leu/uL (Negative); URINE PROTEIN 30 mg/dL (NEGATIVE); WBC URINE 3 /hpf (0-5)
[2016-11-28 23:39] LABS: ALB/GLOB RATIO 1.5 (1.0-2.1); ALKALINE PHOSPHATASE 66 U/L (38-126); ALT/SGPT 22 U/L (21-72); AST/SGOT 23 U/L (17-59); BILIRUBIN,TOTAL 2.9 mg/dl (0.2-1.3); BLOOD UREA NITROGEN 7 mg/dl (9-20); CALCIUM 9.5 mg/dL (8.4-10.2); CARBON DIOXIDE 28 mmol/L (22-30); CHLORIDE 98 mmol/L (98-107); GFR AFRICAN-AMERICAN > 60; GLUCOSE,RANDOM 176 mg/dL (75-110); LIPASE 87 U/L (23-300); POTASSIUM 3.1 MMOL/L (3.6-5.0); SODIUM 142 mmol/l (132-148); TOTAL PROTEIN 7.9 G/DL (6.3-8.2)
[2016-11-29] MEDS ORDERED: Potassium Chloride 20 mEq ER Tab PO ONE ×2 (01:23→01:41)
--- NOTE | 2016-11-29 03:40 | US ---
EXAM: US Abdomen Limited, Right Upper Quadrant CLINICAL HISTORY: 36 years old, male; Pain; Abdominal pain; Epigastric TECHNIQUE: Real-time ultrasound of the right upper quadrant with image documentation. COMPARISON: No relevant prior studies available. FINDINGS: Liver: Fatty infiltration. No mass. No intrahepatic ductal dilatation. Gallbladder: No gallstones. Sludge. No wall thickening. No pericholecystic fluid. No sonographic Allen's sign. Common bile duct: No dilatation. No stones. Pancreas: Unremarkable as visualized. Right kidney: Normal echogenicity. No hydronephrosis. IMPRESSION: 1. Gallbladder sludge. 2. Incidental/non-acute findings are described above.
[2016-11-29 04:09] VITALS: BP 162/94; PULSE 82; RESP 16; TEMP 99.4
[2016-11-29 04:12] VITALS: O2SAT 100
== END 2016-11-29 04:45 | disposition home or self-care (01) ==
LOC: H.ER 20:20
DX: R10.9 Unspecified abdominal pain (principal); E11.9 Type 2 diabetes mellitus without complications; I10 Essential (primary) hypertension; Z79.84 Long term (current) use of oral hypoglycemic drugs
CPT/HCPCS: 76705; 80053; 81003; 82948; 83690; 85025; 96374; 99283; J2405; J7040

== ENCOUNTER 2016-12-20 15:50 | Emergency (ER) | payer OTHER ==
[2016-12-20 16:25] VITALS: TEMP 99.5
[2016-12-20] MEDS ORDERED: Sodium Chloride 0.9% 1,000 ML IV STA ×2 (17:22→18:39)
--- NOTE | 2016-12-20 17:44 | ED PDOC ---
HPI: General Adult Time Seen by Provider: 12/20/16 16:33 Chief Complaint (Nursing): Abdominal Pain History Per: Patient Additional Complaint(s): Pt. states since Monday he's had multiple episodes of non-bloody vomiting associated with 3 episodes of non-bloody watery diarrhea (lasted for only 1 day) . States symptoms improved slightly on Monday but then returned on Monday. Also states that he's had diffused "crampy" abdominal pain greatest in the upper abdominal area. Denies chest pain, sick contacts, recent travel, melena, hematochezia, BRBPR, hematemesis, weakness. Past Medical History Reviewed: Historical Data, Nursing Documentation, Vital Signs Vital Signs: Last Vital Signs Temp 99.5 F 12/20/16 16:22 Pulse 85 12/20/16 19:12 Resp 19 12/20/16 19:12 BP 160/88 H 12/20/16 19:12 Pulse Ox 99 12/21/16 14:58 - Medical History PMH: Diabetes, HTN Denies: Chronic Kidney Disease - Family History Family History: States: No Known Family Hx, Diabetes - Home Medications Home Medications: Ambulatory Orders Medication Instructions Recorded Lisinopril [Zestril] 10 mg PO DAILY #30 tab 07/31/16 MetFORMIN [glucoPHAGE] 1,000 mg PO BID #60 07/31/16 Metoclopramide [Reglan] 10 mg PO Q6 #120 tab 07/31/16 Dicyclomine [Bentyl] 20 mg PO TID #30 tab 11/25/16 Famotidine [Pepcid] 20 mg PO BID #10 tab 11/26/16 Ondansetron ODT [Zofran ODT] 4 mg PO Q8 PRN #6 odt 11/26/16 Famotidine [Pepcid] 20 mg PO BID #20 tab 11/29/16 Ondansetron ODT [Zofran ODT] 4 mg PO Q8 PRN #10 odt 11/29/16 Dicyclomine [Bentyl] 20 mg PO TID PRN #21 tab 12/20/16 Famotidine [Pepcid] 20 mg PO BID #14 tab 12/20/16 Ondansetron ODT [Zofran ODT] 4 mg PO Q8 PRN #10 odt 12/20/16 - Allergies Allergies/Adverse Reactions: Allergies Allergy/AdvReac Type Severity Reaction Status Date / Time No Known Allergies Allergy Verified 07/30/16 19:37 Review of Systems ROS Statement: Except As Marked, All Systems Reviewed And Found Negative Gastrointestinal: Positive for: Nausea, Vomiting, Abdominal Pain, Diarrhea, Constipation Physical Exam - Reviewed Nursing Documentation Reviewed: Yes Vital Signs Reviewed: Yes - Physical Exam Appears: Positive for: Well, Non-toxic, No Acute Distress Head Exam: Positive for: ATRAUMATIC, NORMAL INSPECTION, NORMOCEPHALIC Skin: Positive for: Normal Color, Warm. Negative for: Rash Eye Exam: Positive for: EOMI, Normal appearance, PERRL ENT: Positive for: Normal ENT Inspection Neck: Positive for: Normal, Painless ROM Cardiovascular/Chest: Positive for: Regular Rate, Rhythm Respiratory: Positive for: CNT, Normal Breath Sounds Gastrointestinal/Abdominal: Positive for: Normal Exam, Bowel Sounds, Soft. Negative for: Tenderness, Distended Back: Positive for: Normal Inspection. Negative for: L CVA Tenderness, R CVA Tenderness Extremity: Positive for: Normal ROM Neurologic/Psych: Positive for: Alert, Oriented - Laboratory Results Result Diagrams: 12/20/16 17:51 12/20/16 17:51 - ECG O2 Sat by Pulse Oximetry: 99 - Progress ED Course And Treament: Labs ordered. Pepcid 20mg IV, zofran 4mg IV, bentyl 20mg PO, IV NS bolus ordered. Lab results d/w Dr. Escobedo and states pt. does not require ABG. On re-evaluation, pt. reports improvement of pain but is still present and nausea has resolved. IV NS bolus, donnatol, viscous lidocaine PO, maalox PO, EKG ordered. Disposition - Clinical Impression Clinical Impression: Gastroenteritis - Patient ED Disposition Is Patient to be Admitted: Transfer of Care (Signed out to Bethany CORRALES pending EKG, US results, and disposition) - Disposition Referrals: [facility] [Outside] Ronn Rios MD [Staff Provider] - Disposition: Routine/Home Disposition Time: 19:15 Condition: IMPROVED Prescriptions: Dicyclomine [Bentyl] 20 mg PO TID PRN #21 tab PRN Reason: Pain, Mild (1-3) Famotidine [Pepcid] 20 mg PO BID #14 tab Ondansetron ODT [Zofran ODT] 4 mg PO Q8 PRN #10 odt PRN Reason: Nausea/Vomiting Instructions: Gastroenteritis (ED) Forms: [facility] ED School/Work Excuse
[2016-12-20 18:02] LABS: BASO % 0.4 % (0.0-2.0); EOS % 0.3 % (0.0-4.0); HEMATOCRIT 39.1 % (35.0-51.0); LYMPH # 1.4 K/uL (1.0-4.3); LYMPH % 14.7 % (20.0-40.0); MEAN CELL VOLUME 84.4 fl (80.0-94.0); MEAN CORPUSCULAR HEMOGLOBIN 28.1 pg (27.0-31.0); MEAN CORPUSCULAR HGB CONC 33.3 g/dL (33.0-37.0); MEAN PLATELET VOLUME 8.8 fl (7.2-11.7); MONO # 0.8 K/uL (0.0-0.8); MONO % 9.2 % (0.0-10.0); NEUT # 6.9 K/uL (1.8-7.0); NEUT % 75.4 % (50.0-75.0); NRBC % 0.1 % (0.0-0.0); RED CELL DISTRIBUTION WIDTH 12.8 % (11.5-14.5); WHITE BLOOD COUNT 9.2 K/uL (4.8-10.8)
[2016-12-20 18:10] LABS: RBC URINE 1 /hpf (0-3); URINE BACTERIA RARE (<OCC); URINE BILIRUBIN NEGATIVE (NEGATIVE); URINE BLOOD NEGATIVE (NEGATIVE); URINE COLOR YELLOW (YELLOW); URINE GLUCOSE (UA) 150 mg/dL (Normal); URINE KETONE 20 mg/dL (NEGATIVE); URINE LEUKOCYTE ESTERASE NEG Leu/uL (Negative); URINE PROTEIN 100 mg/dL (NEGATIVE); WBC URINE < 1 /hpf (0-5)
[2016-12-20 18:11] LABS: ALB/GLOB RATIO 1.6 (1.0-2.1); ALKALINE PHOSPHATASE 58 U/L (38-126); ALT/SGPT 21 U/L (21-72); AST/SGOT 16 U/L (17-59); BLOOD UREA NITROGEN 5 mg/dl (9-20); CALCIUM 9.5 mg/dL (8.4-10.2); CARBON DIOXIDE 34 mmol/L (22-30); CHLORIDE 97 mmol/L (98-107); GFR AFRICAN-AMERICAN > 60; GLUCOSE,RANDOM 228 mg/dL (75-110); LIPASE 61 U/L (23-300); SODIUM 141 mmol/l (132-148); TOTAL PROTEIN 7.3 G/DL (6.3-8.2)
[2016-12-20 18:17] LABS: POTASSIUM 3.2 MMOL/L (3.6-5.0)
[2016-12-20] MEDS ORDERED: Potassium Chloride 20 mEq ER Tab PO ONE (18:42)
[2016-12-20] MEDS ORDERED: Potassium Chloride 20 mEq ER Tab PO STA (18:44)
[2016-12-20 19:13] VITALS: BP 160/88; PULSE 85; RESP 19
[2016-12-20 19:52] VITALS: O2SAT 99
[2016-12-20] MEDS ORDERED: Belladonna-Phenobarbital PO STA (19:56)
[2016-12-20] MEDS ORDERED: Alum-Mag Hydrox-Simethicone Susp (30 mL) PO ONE (19:56)
--- NOTE | 2016-12-20 20:44 | ED PDOC ---
- Laboratory Results Result Diagrams: 12/20/16 17:51 12/20/16 17:51 - ECG ECG: Positive for: Viewed By Me (reviewed by ED attending) ECG Rhythm: Positive for: Sinus Rhythm O2 Sat by Pulse Oximetry: 99 - Progress ED Course And Treament: Case endorsed to sign writer letterer or painter from [facility] CORRALES pending u/s EXAM: US Abdomen Complete EXAM DATE/TIME: 12/20/2016 7:58 PM CLINICAL HISTORY: 36 years old, male; Pain; Abdominal pain; Generalized TECHNIQUE: Real-time ultrasound of the abdomen (complete) with image documentation. COMPARISON: US - RIGHT UPPER QUADRANT 2016-11-29 02:41 FINDINGS: Liver: Liver is unremarkable. Gallbladder: Gallbladder is partially distended. There is gallbladder wall prominence, 6 mm in width. There are no mobile or shadowing stones. There are no mobile masses. There is a focal echogenic gallbladder wall nodule which measures approximately 3 x 9 x 6 mm, image 37 series 2. This is is non-shadowing and non-mobile. Common bile duct: Common bile duct measures 4.5 mm in diameter Pancreas: Pancreas is almost completely obscured by bowel gas. Kidneys: Kidneys are unremarkable. Corticomedullary differentiation is maintained. There is no pelvocaliectasis. Spleen: Spleen is unremarkable. Aorta: Visualized portions of the aorta and inferior vena cava are unremarkable. Inferior vena cava: See above. IMPRESSION: Echogenic non-mobile gallbladder wall mass which may represent a small polyp; no stones or ductal dilatation In retrospect, similar type lesion was seen on prior study Patient was not tender over the gallbladder Thank you for allowing us to participate in the care of your patient. On re-eval, patient states pain/nausea improved. Patient tolerating PO. Patient educated on findings, discharged with rx zofran, pepcid, bentyl. Advised bland diet. FLuids. Follow up PMD/GI. Return to ED for worsening/concerning symptoms. Disposition - Clinical Impression Clinical Impression: Gastroenteritis - POA Present On Arrival: None - Disposition Referrals: [facility] [Outside] Ronn Rios MD [Staff Provider] - Disposition: Routine/Home Disposition Time: 22:37 Condition: IMPROVED Prescriptions: Dicyclomine [Bentyl] 20 mg PO TID PRN #21 tab PRN Reason: Pain, Mild (1-3) Famotidine [Pepcid] 20 mg PO BID #14 tab Ondansetron ODT [Zofran ODT] 4 mg PO Q8 PRN #10 odt PRN Reason: Nausea/Vomiting Instructions: Gastroenteritis (ED)
--- NOTE | 2016-12-20 22:25 | US ---
EXAM: US Abdomen Complete EXAM DATE/TIME: 12/20/2016 7:58 PM CLINICAL HISTORY: 36 years old, male; Pain; Abdominal pain; Generalized TECHNIQUE: Real-time ultrasound of the abdomen (complete) with image documentation. COMPARISON: US - RIGHT UPPER QUADRANT 2016-11-29 02:41 FINDINGS: Liver: Liver is unremarkable. Gallbladder: Gallbladder is partially distended. There is gallbladder wall prominence, 6 mm in width. There are no mobile or shadowing stones. There are no mobile masses. There is a focal echogenic gallbladder wall nodule which measures approximately 3 x 9 x 6 mm, image 37 series 2. This is is non-shadowing and non-mobile. Common bile duct: Common bile duct measures 4.5 mm in diameter Pancreas: Pancreas is almost completely obscured by bowel gas. Kidneys: Kidneys are unremarkable. Corticomedullary differentiation is maintained. There is no pelvocaliectasis. Spleen: Spleen is unremarkable. Aorta: Visualized portions of the aorta and inferior vena cava are unremarkable. Inferior vena cava: See above. IMPRESSION: Echogenic non-mobile gallbladder wall mass which may represent a small polyp; no stones or ductal dilatation In retrospect, similar type lesion was seen on prior study Patient was not tender over the gallbladder
--- NOTE | 2016-12-21 07:32 | CARD ---
APPROVED REPORT EKG Measurement Heart [id number] CT [id number] <Conclusion> Normal sinus rhythm Normal ECG
--- NOTE | 2016-12-21 11:39 | RAD ---
PROCEDURE: Radiographs of the chest and abdomen (obstructive series) HISTORY: Abdominal pain, constipation COMPARISON: No prior. TECHNIQUE: AP radiograph of the chest, with upright and supine radiographs of the abdomen. FINDINGS: CHEST: Lungs: Clear. Cardiovascular: Normal size heart. No pulmonary vascular congestion. Pleura: No pleural fluid. No pneumothorax. Other findings: None. ABDOMEN AND PELVIS: Bowel: Nonspecific bowel-gas pattern. No evidence of mechanical obstruction. Free air: None. Bones: Unremarkable. Other findings: None. IMPRESSION: Nonspecific bowel gas pattern. No evidence of bowel obstruction. Clear lungs.
[2016-12-21] MEDS ORDERED: Potassium Chloride 20 mEq ER Tab PO ONE (18:39)
== END 2016-12-20 22:40 | disposition home or self-care (01) ==
LOC: H.ER 15:50
DX: K52.9 Noninfective gastroenteritis and colitis, unspecified (principal); E11.9 Type 2 diabetes mellitus without complications; Z79.84 Long term (current) use of oral hypoglycemic drugs; I10 Essential (primary) hypertension
CPT/HCPCS: 74022; 76700; 80053; 81003; 83690; 85025; 93005; 96374; 96375; 99282; J2405; J7040

== ENCOUNTER 2017-07-24 20:29 | Emergency (ER) | payer MEDICAID, OTHER ==
[2017-07-24] MEDS ORDERED: Sodium Chloride 0.9% 1,000 ML IV STA ×2 (21:06→22:59)
--- NOTE | 2017-07-24 21:09 | ED PDOC ---
Addendum entered and electronically signed by Jacqueline Sims PA 07/25/17 06:03 : Addendum Addendum: 07/25/17 05:59 Upon discharging patient, he is vomiting. States his current pain is now localized in the epigastric area of his abdomen. Associated chills. Patient states flank pain improved. Patient states he has had this epigastric pain/cramping on-and-off x 1 year now ; was seen in ED multiple times last year for same. When asked if he followed up with a specialist he states he is still "working on it". Chart reviewed, differentials included gastritis, gastroparesis, cannabis-induced hyperemesis Patient given multiple subsequent medications for pain/nausea without improvement. Patient now with elevated HR in 120's Case discussed with ED attending DR. Traylor; will order IV haldol dose for possible cannabis-induced hyperemesis. 6:00 HR improved (103-107) Case endorsed to Dr. Traylor pending re-evaluation Original Note: HPI: Back Chief Complaint (Provider): back pain History Per: Patient History/Exam Limitations: no limitations Onset/Duration Of Symptoms: Hrs (1) Current Symptoms Are (Timing): Still Present Quality Of Discomfort: "Pain" Additional Complaint(s): 37 y/o male presents for evaluation of acute onset right lower back pain x 1 hour. Patient states pain radiates to right lower abdomen. Associated nausea. DEnies fever, vomiting, chest pain, shortness of breath, changes in bowel movements, urinary symptoms. <Jacqueline Sims - Last Filed: 07/25/17 05:59> <Enzo Traylor - Last Filed: 07/25/17 06:44> Time Seen by Provider: 07/24/17 20:54 Chief Complaint (Nursing): Back Pain Past Medical History Reviewed: Historical Data, Nursing Documentation, Vital Signs Vital Signs: Last Vital Signs Temp 96.8 F L 07/24/17 20:45 Pulse 99 H 07/24/17 20:45 Resp 18 07/24/17 20:45 BP 163/95 H 07/24/17 20:45 Pulse Ox 100 07/24/17 20:45 - Medical History PMH: Diabetes, HTN, Kidney Stones Denies: Chronic Kidney Disease - Surgical History Surgical History: No Surg Hx - Family History Family History: States: Diabetes <Jacqueline Sims - Last Filed: 07/25/17 05:59> Vital Signs: Last Vital Signs Temp 98.9 F 07/25/17 04:32 Pulse 104 H 07/25/17 06:14 Resp 17 07/25/17 06:14 BP 136/80 07/25/17 06:14 Pulse Ox 99 07/25/17 06:14 <Enzo Tarylor - Last Filed: 07/25/17 06:44> - Home Medications Home Medications: Ambulatory Orders Medication Instructions Recorded Lisinopril [Zestril] 10 mg PO DAILY #30 tab 07/31/16 MetFORMIN [glucoPHAGE] 1,000 mg PO BID #60 07/31/16 Metoclopramide [Reglan] 10 mg PO Q6 #120 tab 07/31/16 Dicyclomine [Bentyl] 20 mg PO TID #30 tab 11/25/16 Famotidine [Pepcid] 20 mg PO BID #10 tab 11/26/16 Ondansetron ODT [Zofran ODT] 4 mg PO Q8 PRN #6 odt 11/26/16 Famotidine [Pepcid] 20 mg PO BID #20 tab 11/29/16 Ondansetron ODT [Zofran ODT] 4 mg PO Q8 PRN #10 odt 11/29/16 Dicyclomine [Bentyl] 20 mg PO TID PRN #21 tab 12/20/16 Famotidine [Pepcid] 20 mg PO BID #14 tab 12/20/16 Ondansetron ODT [Zofran ODT] 4 mg PO Q8 PRN #10 odt 12/20/16 Ibuprofen [Motrin Tab] 1 tab PO Q6 PRN #20 tab 07/24/17 Ondansetron ODT [Zofran ODT] 4 mg PO Q8 PRN #10 odt 07/24/17 Tamsulosin [Flomax] 0.4 mg PO DAILY #10 cap 07/24/17 traMADol [Ultram] 50 mg PO BID #10 tab 07/25/17 - Allergies Allergies/Adverse Reactions: Allergies Allergy/AdvReac Type Severity Reaction Status Date / Time No Known Allergies Allergy Verified 07/24/17 20:45 Review of Systems ROS Statement: Except As Marked, All Systems Reviewed And Found Negative Gastrointestinal: Positive for: Abdominal Pain Musculoskeletal: Positive for: Back Pain <Jacqueline Sims C - Last Filed: 07/25/17 05:59> Physical Exam - Reviewed Nursing Documentation Reviewed: Yes Vital Signs Reviewed: Yes - Physical Exam Appears: Positive for: Well, Non-toxic, Uncomfortable Head Exam: Positive for: ATRAUMATIC, NORMAL INSPECTION, NORMOCEPHALIC Skin: Positive for: Normal Color Eye Exam: Positive for: Normal appearance ENT: Positive for: Normal ENT Inspection Cardiovascular/Chest: Positive for: Regular Rate, Rhythm Respiratory: Positive for: Normal Breath Sounds Gastrointestinal/Abdominal: Positive for: Bowel Sounds, Soft, Tenderness (right flank) Back: Positive for: R CVA Tenderness. Negative for: L CVA Tenderness, Decreased ROM, Muscle Spasm Extremity: Positive for: Normal ROM Neurologic/Psych: Positive for: Alert, Oriented <Jacqueline Sims C - Last Filed: 07/25/17 05:59> - Laboratory Results Result Diagrams: 07/24/17 21:28 07/24/17 21:28 - ECG O2 Sat by Pulse Oximetry: 100 - Progress ED Course And Treament: labs, urine, IV fluids, IV toradol EXAM: CT Abdomen and Pelvis Without Intravenous Contrast CLINICAL HISTORY: 37 years old, male; Pain; Abdominal pain and other: Rt lower back; Flank; Right ; Patient HX: Prior rt renal stone; Additional info: Right flank pain TECHNIQUE: Axial computed tomography images of the abdomen and pelvis without intravenous contrast. All CT scans at this facility use one or more dose reduction techniques, viz.: automated exposure control; ma/kV adjustment per patient size (including targeted exams where dose is matched to indication; i.e. head); or iterative reconstruction technique. Coronal and sagittal reformatted images were created and reviewed. COMPARISON: CT - ABD PELVIS PO IV CONTRAST 2016-11-25 17:57 FINDINGS: Limitations: Lack of intravenous contrast. Motion artifact - mild. Lung bases: No acute findings. Mediastinum: Small hiatal hernia. ABDOMEN: Liver: Unremarkable. Gallbladder and bile ducts: No calcified stones. No ductal dilation. Pancreas: Unremarkable. No ductal dilation. Spleen: No splenomegaly. Adrenals: No mass. Kidneys and ureters: Punctate calculus within LEFT kidney. Mild pelvocaliectasis of RIGHT kidney. Mildly dilated RIGHT ureter. 0.1 x 0.1 x 0.1 cm calculus at or just beyond RIGHT ureterovesical junction. Stomach and bowel: Segmental areas of probable underdistention of LEFT colon. No definite mural thickening. No obstruction. PELVIS: Appendix: Normal caliber. No inflammation. Bladder: Borderline bladder wall thickening, 4-5 mm. Incomplete distention, limiting evaluation. Reproductive: Borderline enlarged prostate. ABDOMEN and PELVIS: Intraperitoneal space: No significant fluid collection. No free air. Bones/joints: No acute fracture. Soft tissues: Unremarkable. Vasculature: Minimal atherosclerotic disease of iliac arteries. No aneurysm. Lymph nodes: No pathologically enlarged lymph nodes. IMPRESSION: 1. RIGHT distal ureteral calculus with mild hydroureteronephrosis. 2. Borderline prostate enlargement. Followup as clinically warranted. 3. Possible mild bladder wall thickening. Clinical correlation is needed. 4. Incidental/non-acute findings are described above. On re-eval, patient resting comfortably; states he is feeling better. Tolerating PO Patient educated on findings, discharged with rx Flomax (dose given in ED), Ibuprofen, Percocet, Zofran Urine strainer given with instructions on use. Advised fluids. Follow up urology Return precautions given. <Jacqueline Sims - Last Filed: 07/25/17 05:59> - Laboratory Results Result Diagrams: 07/24/17 21:28 07/24/17 21:28 <Enzo Traylor - Last Filed: 07/25/17 06:44> Medical Decision Making Medical Decision Makin Patient reports that he is feeling much better, HR 102-104. Advised to abstain from cannabinoids and to followup with his PMD urgently. Will also give refrerral to urology. Advised patient only to take tramadol as absolutely needed while stone is passing and not to abuse it as it has addictive potential , patient understands this. Patient well appearing, tolerating PO, ambulatory upon discharge. <Enzo Traylor - Last Filed: 07/25/17 06:44> Disposition - Patient ED Disposition Is Patient to be Admitted: No - Disposition Disposition: Routine/Home Disposition Time: 00:16 <Jacqueline Sims - Last Filed: 07/25/17 05:59> - Patient ED Disposition Is Patient to be Admitted: No - Disposition Disposition: Routine/Home Disposition Time: 06:45 <Enzo Traylor - Last Filed: 07/25/17 06:44> - Clinical Impression Clinical Impression: Kidney stone on right side, Abdominal pain, Cannabinoid hyperemesis syndrome - Disposition Referrals: Uri Wheat Jr., MD [Staff Provider] - [facility] [place] [Outside] Condition: IMPROVED Prescriptions: Ibuprofen [Motrin Tab] 1 tab PO Q6 PRN #20 tab PRN Reason: Pain, Moderate (4-7) Ondansetron ODT [Zofran ODT] 4 mg PO Q8 PRN #10 odt PRN Reason: Nausea/Vomiting Tamsulosin [Flomax] 0.4 mg PO DAILY #10 cap traMADol [Ultram] 50 mg PO BID #10 tab Instructions: Kidney Stones in Adults, Taking Narcotics Safely, Opioids for Short-Term Treatment of Pain, Marijuana Use and Addiction Forms: [employer] (Norwegian)
[2017-07-24 21:34] LABS: BASO # 0.1 K/uL (0.0-0.2); BASO % 0.6 % (0.0-2.0); EOS % 0.1 % (0.0-4.0); HEMOGLOBIN 13.8 g/dL (12.0-18.0); LYMPH # 1.3 K/uL (1.0-4.3); LYMPH % 10.9 % (20.0-40.0); MEAN CELL VOLUME 85.4 fl (80.0-94.0); MEAN CORPUSCULAR HEMOGLOBIN 29.1 pg (27.0-31.0); MEAN CORPUSCULAR HGB CONC 34.1 g/dL (33.0-37.0); MEAN PLATELET VOLUME 9.1 fl (7.2-11.7); MONO # 0.7 K/uL (0.0-0.8); MONO % 6.1 % (0.0-10.0); NEUT # 10.2 K/uL (1.8-7.0); NEUT % 82.3 % (50.0-75.0); RBC 4.73 Mil/uL (4.40-5.90); WHITE BLOOD COUNT 12.3 K/uL (4.8-10.8)
[2017-07-24 21:42] LABS: ALB/GLOB RATIO 1.4 (1.0-2.1); ALBUMIN 4.8 g/dL (3.5-5.0); ALT/SGPT 24 U/L (21-72); AST/SGOT 24 U/L (17-59); BLOOD UREA NITROGEN 9 mg/dl (9-20); CALCIUM 10.2 mg/dL (8.4-10.2); GFR AFRICAN-AMERICAN > 60; GFR NON-AFRICAN AMERICAN > 60
[2017-07-24 21:47] LABS: SQUAMOUS EPITHIAL < 1 /hpf (0-5); URINE BACTERIA OCC (<OCC); URINE BILIRUBIN NEGATIVE (NEGATIVE); URINE BLOOD SMALL (NEGATIVE); URINE CLARITY CLOUDY (Clear); URINE COLOR AMBER (YELLOW); URINE GLUCOSE (UA) NEG (Normal); URINE LEUKOCYTE ESTERASE NEG Leu/uL (Negative); URINE PROTEIN 100 mg/dL (NEGATIVE)
--- NOTE | 2017-07-24 22:50 | CT ---
EXAM: CT Abdomen and Pelvis Without Intravenous Contrast CLINICAL HISTORY: 37 years old, male; Pain; Abdominal pain and other: Rt lower back; Flank; Right; Patient HX: Prior rt renal stone; Additional info: Right flank pain TECHNIQUE: Axial computed tomography images of the abdomen and pelvis without intravenous contrast. All CT scans at this facility use one or more dose reduction techniques, viz.: automated exposure control; ma/kV adjustment per patient size (including targeted exams where dose is matched to indication; i.e. head); or iterative reconstruction technique. Coronal and sagittal reformatted images were created and reviewed. COMPARISON: CT - ABD PELVIS PO IV CONTRAST 2016-11-25 17:57 FINDINGS: Limitations: Lack of intravenous contrast. Motion artifact - mild. Lung bases: No acute findings. Mediastinum: Small hiatal hernia. ABDOMEN: Liver: Unremarkable. Gallbladder and bile ducts: No calcified stones. No ductal dilation. Pancreas: Unremarkable. No ductal dilation. Spleen: No splenomegaly. Adrenals: No mass. Kidneys and ureters: Punctate calculus within LEFT kidney. Mild pelvocaliectasis of RIGHT kidney. Mildly dilated RIGHT ureter. 0.1 x 0.1 x 0.1 cm calculus at or just beyond RIGHT ureterovesical junction. Stomach and bowel: Segmental areas of probable underdistention of LEFT colon. No definite mural thickening. No obstruction. PELVIS: Appendix: Normal caliber. No inflammation. Bladder: Borderline bladder wall thickening, 4-5 mm. Incomplete distention, limiting evaluation. Reproductive: Borderline enlarged prostate. ABDOMEN and PELVIS: Intraperitoneal space: No significant fluid collection. No free air. Bones/joints: No acute fracture. Soft tissues: Unremarkable. Vasculature: Minimal atherosclerotic disease of iliac arteries. No aneurysm. Lymph nodes: No pathologically enlarged lymph nodes. IMPRESSION: 1. RIGHT distal ureteral calculus with mild hydroureteronephrosis. 2. Borderline prostate enlargement. Followup as clinically warranted. 3. Possible mild bladder wall thickening. Clinical correlation is needed. 4. Incidental/non-acute findings are described above.
[2017-07-25 00:33] VITALS: O2SAT 99
[2017-07-25] MEDS ORDERED: Lidocaine 100 MG in Sodium Chloride 0.9% 100 ML IV ONE (02:28)
[2017-07-25] MEDS ORDERED: LIDOCAINE IV STA (02:45)
[2017-07-25] MEDS ORDERED: SODIUM CHLORIDE 0.9% IV STA (02:45)
[2017-07-25] MEDS ORDERED: Sodium Chloride 0.9% 1,000 ML IV STA (04:25)
[2017-07-25 04:39] VITALS: TEMP 98.9
[2017-07-25 04:50] LABS: VENOUS BLOOD GAS BASE EXCESS -0.3 mmol/L (0.0-2.0); VENOUS BLOOD GAS PCO2 38 mmHg (40-60); VENOUS BLOOD GAS PO2 51 mm/Hg (30-55); VENOUS BLOOD PH 7.41 (7.32-7.43)
[2017-07-25 05:22] LABS: BARBITURATES, UR NEGATIVE (NEGATIVE); BENZODIAZEPINES, UR NEGATIVE (NEGATIVE); OPIATES, UR NEGATIVE (NEGATIVE); PHENCYCLIDINE, UR NEGATIVE (NEGATIVE)
[2017-07-25 06:22] VITALS: BP 136/80; PULSE 104; RESP 17
== END 2017-07-25 07:01 | disposition home or self-care (01) ==
LOC: H.ER 20:29
DX: N20.0 Calculus of kidney (principal); F12.188 Cannabis abuse with other cannabis-induced disorder; R10.13 Epigastric pain; E11.9 Type 2 diabetes mellitus without complications; I10 Essential (primary) hypertension; N40.0 Benign prostatic hyperplasia without lower urinary tract symptoms; T40.7X5A Adverse effect of cannabis (derivatives), initial encounter; Z79.84 Long term (current) use of oral hypoglycemic drugs
CPT/HCPCS: 74176; 80053; 80324; 80345; 80346; 80349; 80353; 80358; 80361; 81003; 82803; 83992; 85025; 87086; 96361; 96374; 96375; 99284; C9113; J1630; J1885; J2001; J2270; J2765; J7040